=== PATIENT | male | born 1950 | race Caucasian/White ===

== ENCOUNTER 2020-02-05 11:10 | Emergency (ER) | payer MEDICARE, OTHER, SELFPAY ==
[2020-02-05 11:21] VITALS: BP 186/81; PULSE 63; RESP 16; TEMP 36.4; O2SAT 97
--- NOTE | 2020-02-05 11:52 | ED.GENADULT ---
HPI - General Adult General Chief complaint: Unspecified Stated complaint: High BP Source: patient and RN notes reviewed Mode of arrival: ambulatory Limitations: no limitations History of Present Illness HPI narrative: The patient here is for blood pressure check, as he was seen by his nurse and noted to have systolics close to 190. He is currently asymptomatic without head?chest?abdominal pain, speech?visual changes, lateralizing weakness, shortness of breath, increased edema. He has reportedly stable labs in the past year, and has follow-up available Related Data Home Medications Medication Instructions Recorded Confirmed albuterol sulfate 2 puff INHALATION PRN 02/05/20 02/05/20 carvedilol 25 mg PO BID 02/05/20 02/05/20 clopidogrel 75 mg PO DAILY 02/05/20 02/05/20 lisinopril 10 mg PO BID 02/05/20 02/05/20 simvastatin 80 mg PO DAILY 02/05/20 02/05/20 Allergies Allergy/AdvReac Type Severity Reaction Status Date / Time No Known Allergies Allergy Verified 02/05/20 11:22 Review of Systems Review of Systems: Narrative: General/Constitutional: No weight loss,fever Eyes: N0: Redness,discharge Ears/Nose/Throat: No: Epistaxis,ear discharge Respiratory: Denies: Hemoptysis Gastrointestinal: No Vomiting, Bleeding-rectal Skin: No Lumps, eruption Neurologic: No Focal Weakness,Sz Hematologic: Denies: Petechiae/Purpura Psychiatric: No: Suicida ideationl All Other Systems: Reviewed and Negative Exam Narrative: Exam Narrative: General Appearance: Well appearing, Well nourished, No distress EYE: PERRLA EOMI Mouth/Throat: Normal appearing, Normal lips Neck: Supple, No adenopathy Respiratory: Airway patent, No respiratory distress Skin: Warm, Dry Neurological: A&O x3, CN II-X intact Psychiatric: Normal mood, Normal affect Course Vital Signs Vital signs: Vital Signs Temperature 97.6 F 02/05/20 11:21 Pulse Rate 63 02/05/20 11:21 Respiratory Rate 16 02/05/20 11:21 Blood Pressure 186/81 H 02/05/20 11:21 Pulse Oximetry 97 02/05/20 11:21 Temperature 97.6 F 02/05/20 11:21 Pulse Rate 63 02/05/20 11:21 Respiratory Rate 16 02/05/20 11:21 Blood Pressure 178/80 H 02/05/20 11:53 Pulse Oximetry 97 02/05/20 11:21 Medical Decision Making Vital Signs Vital Signs: Vital Signs Temperature 97.6 F 02/05/20 11:21 Pulse Rate 63 02/05/20 11:21 Respiratory Rate 16 02/05/20 11:21 Blood Pressure 186/81 H 02/05/20 11:21 Pulse Oximetry 97 02/05/20 11:21 Temperature 97.6 F 02/05/20 11:21 Pulse Rate 63 02/05/20 11:21 Respiratory Rate 16 02/05/20 11:21 Blood Pressure 178/80 H 02/05/20 11:53 Pulse Oximetry 97 02/05/20 11:21 Discharge Plan Discharge Clinical Impression: Blood pressure check, History of hypertension Patient Disposition: Home, Self-Care Condition: Improved Additional Instructions: You may take half tablet extra of your blood pressure med lisinopril in the future, for blood pressures over systolic 180s approaching 200. Prescriptions: No Action carvedilol 25 mg tablet 25 mg PO BID RF: 0 clopidogrel 75 mg tablet 75 mg PO DAILY RF: 0 simvastatin 80 mg tablet 80 mg PO DAILY RF: 0 lisinopril 10 mg tablet 10 mg PO BID RF: 0 albuterol sulfate 90 mcg/actuation HFA aerosol inhaler 2 puff INHALATION PRN RF: 0 Interventions: Discharge Disposition Last Done: 02/05/20 11:55 Follow-up/Referrals: PHYSICIAN NOT ON STAFF,NONSTAFF [Primary Care Provider] - Discharge Date/Time: 02/05/20 11:55
[2020-02-05 11:53] VITALS: BP 178/80
== END 2020-02-05 11:55 | disposition home or self-care (01) ==
PROVIDERS: Emergency Provider Emergency Medicine
DX: I10 Essential (primary) hypertension (principal); Z86.73 Personal history of transient ischemic attack (TIA), and cerebral infarction without residual deficits; Z95.1 Presence of aortocoronary bypass graft; E78.00 Pure hypercholesterolemia, unspecified; J45.909 Unspecified asthma, uncomplicated; Z79.01 Long term (current) use of anticoagulants
CPT/HCPCS: 99211; G0463